=== PATIENT | female | born 2000 | race African-American/Black ===

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

== ENCOUNTER 2018-11-14 16:43 | Emergency (ER) | payer MEDICAID ==
[~2018-11-14] VITALS: Ht 172.7 cm; Wt 71.7 kg
[2018-11-14 19:16] LABS: Urine Bacteria NONE SEEN /hpf (None Seen); Urine Blood Negative /uL (Negative); Urine Mucus FEW (None Seen); Urine Specific Gravity 1.024 (1.001-1.035); Urine WBC 2 /hpf (0 - 5)
[2018-11-14 21:00] VITALS: BP 118/62
== END 2018-11-14 21:23 | disposition home or self-care (01) ==
LOC: ER 16:57
DX: S29.012A Strain of muscle and tendon of back wall of thorax, initial encounter (principal); R10.84 Generalized abdominal pain; X58.XXXA Exposure to other specified factors, initial encounter; Y93.89 Activity, other specified; Y92.89 Other specified places as the place of occurrence of the external cause; Y99.8 Other external cause status
CPT/HCPCS: 74176; 81001